=== PATIENT | female | born 1990 | race Caucasian/White ===

== ENCOUNTER 2017-07-26 20:31 | Emergency (ER) | payer BC, SELFPAY ==
[2017-07-26 20:58] VITALS: BP 124/78; PULSE 93; RESP 16; TEMP 37.2; O2SAT 99
[2017-07-26 21:48] LABS: Add Manual Diff / Slide Review NO; Basophils Percent Auto 0.8 % (0-2); Eosinophils Percent Auto 0.3 % (2-4); Hematocrit 41.5 % (36-46); Hemoglobin 14.8 g/dL (12.0-16.0); Lymphocytes Percent Auto 24.9 % (25-40); Mean Corpuscular HGB Conc 35.7 % (30-36); Mean Corpuscular Hemoglobin 30.7 PG (26-34); Mean Corpuscular Volume 86.1 fL (80-100); Monocytes Percent Auto 5.4 % (3-14); Neutrophils Absolute Auto 5100 /uL (3000-5900); Neutrophils Percent Auto 68.6 % (50-75); Platelet Count 312 X10^3/uL (150-400); Red Blood Cell Count 4.83 X10^6/uL (4.0-5.2); Red Cell Distribution Width 12.6 % (11.6-14.8); White Blood Cell Count 7.4 X10^3/uL (4.5-11.0)
[2017-07-26 21:52] LABS: INR 1.1 (0.9-1.3); Prothrombin Time 12.4 SECONDS (10.1-12.7)
[2017-07-26 21:55] LABS: PTT Partial Thromboplastin Tim 33 SECONDS (26.4-36.2)
[2017-07-26 21:56] LABS: Alanine Aminotransferase 16 IU/L (9-52); Albumin 4.9 g/dL (3.5-5.0); Albumin Globulin Ratio 1.5 (1.0-2.8); Alkaline Phosphatase 49 U/L (38-126); Aspartate Aminotransferase 21 IU/L (14-36); BUN Creatinine Ratio 11.4 (6-22); Calcium 9.6 mg/dL (8.4-10.2); Estimated Glomerular Filt Rate > 60.0 mL/min (>60); Globulin 3.2 g/dL (1.7-4.1); Glucose 91 mg/dL (70-100); HEMOLYSIS < 15 (0-50); Lipase 58 U/L (23-300); Potassium 3.7 mmol/L (3.4-5.1); Sodium 140 mmol/L (137-145); Total Protein 8.1 g/dL (6.3-8.2)
--- NOTE | 2017-07-27 00:04 | ED_ITS ---
HPI - GI Bleed General Chief complaint: GI Bleed Stated complaint: SEVERE STOMACH PAIN, BLOOD IN STOOL X 3 DAYS Time Seen by Provider: 07/26/17 23:46 Source: patient and RN notes reviewed Mode of arrival: ambulatory History of Present Illness HPI Narrative: Patient is a 27-year-old female who presents with 2 episodes of black tarry stool today. She is having some epigastric pain. She denies taking any Pepto-Bismol or NSAIDs. She is having some abdominal cramping no dizziness lightheadedness or shortness of breath. MD complaint: other (black stool x2) Onset (ago): day(s) (1) Pain Consistency: now resolved Severity: mild Relieving factors: none Exacerbating factors: none Associated symptoms: abdominal pain Treatments Prior to Arrival: none Related Data Home Medications Medication Instructions Recorded Confirmed [SUPPLEMENTS] #0 03/11/16 Previous Rx's Medication Instructions Recorded doxycycline hyclate 100 mg PO Q12H #20 cap 03/11/16 hydrocodone-acetaminophen 0 tab PO Q6HP PRN #15 tab 03/11/16 metronidazole [Flagyl] 500 mg PO Q6H 10 Days #0 tab 03/11/16 ondansetron [Zofran ODT] 4 mg SUBLINGUAL Q6HP PRN #20 odt 03/11/16 pantoprazole [Protonix] 20 mg PO BID #14 tab 07/27/17 Allergies Allergy/AdvReac Type Severity Reaction Status Date / Time No Known Drug Allergies Allergy Verified 07/26/17 21:01 Review of Systems Review of Systems All systems reviewed & are unremarkable except as noted in HPI and below Constitutional Denies chills, Denies fever(s), Denies headache(s), Denies lethargy and Denies weakness ENT Ears, Nose, Mouth, and Throat: Denies headache(s) Cardiovascular Denies chest pain, Denies irregular heart rhythm, Denies lightheadedness, Denies palpitations, Denies dyspnea, Denies dyspnea on exertion and Denies orthopnea Respiratory Denies cough, Denies dyspnea, Denies dyspnea on exertion and Denies wheezing Gastrointestinal Gastrointestinal: Reports as per HPI Genitourinary Denies hematuria, Denies flank pain, Denies urinary incontinence and Denies urinary urgency Neurologic Denies headache(s), Denies lack of coordination and Denies weakness Endocrine Denies palpitations Allergic/Immunologic Denies wheezing [facility] Social History Smoking Status: Never smoker Exam Const General: cooperative and well developed Nutritional Appearance: well nourished Orientation: alert, awake, oriented x3 and not confused Other: Patient sleeping easily awoke Eyes General: appearance normal, both eyes and all related structures Pupils: PERRL EOM: EOM intact bilaterally Neck Neck: normal visual inspection and No lymphadenopathy Resp Effort & Inspection: normal respiratory effort, able to speak in complete sentences, no respiratory distress and no use of accessory muscles Auscultation: clear to auscultation bilaterally, no rales, no rhonchi and no wheezes Cardio Rate: regular rate Rhythm: regular rhythm Heart Sounds: no click, no gallops, no murmurs and no rubs Pulses: normal peripheral pulses GI Inspection: non-distended Palpation: soft, no hepatosplenomegaly, No guarding, No pulsatile mass and No tender Auscultation: normal bowel sounds Rectal Exam: visual inspection normal, normal sphincter tone and No hemorrhoids Other: No gross blood no stool Skin General: no rashes or lesions noted, No jaundice and No petechiae Neuro General: alert, oriented x3, gait normal and no focal motor deficits Cranial Nerves: CN's II-XI intact bilaterally Speech: speech normal Motor: strength 5/5 throughout Sensory Exam: no sensory deficits noted MDM - GI Bleed MDM Narrative Medical decision making narrative: The patient is hemodynamically stable she had 2 dark bowel movements are. Probable gastritis. Sleeping and feeling better now. Differential Diagnosis Likely infectious diarrhea, esophageal varices, gastritis, Upper gastrointestinal hemorrhage and Lower gastrointestinal hemorrhage Medical Records Attestation: I reviewed the patient's medical records. Lab Data Attestation: I reviewed the patient's lab results. Result diagrams: 07/26/17 21:30 07/26/17 21:30 Lab Results 07/26/17 07/26/17 07/26/17 Range/Units 21:30 21:30 21:30 WBC 7.4 (4.5-11.0) X10^3/uL RBC 4.83 (4.0-5.2) X10^6/uL Hgb 14.8 (12.0-16.0) g/dL Hct 41.5 (36-46) % MCV 86.1 (80-100) fL MCH 30.7 (26-34) PG MCHC 35.7 (30-36) % RDW 12.6 (11.6-14.8) % Plt Count 312 (150-400) X10^3/uL Neut % (Auto) 68.6 (50-75) % Lymph % (Auto) 24.9 L (25-40) % [place] % (Auto) 5.4 (3-14) % Eos % (Auto) 0.3 L (2-4) % Baso % (Auto) 0.8 (0-2) % Neut # (Auto) 5100 (5722-1259) /uL PT 12.4 (10.1-12.7) SECONDS INR 1.1 (0.9-1.3) APTT 33 (26.4-36.2) SECONDS Sodium 140 (137-145) mmol/L Potassium 3.7 (3.4-5.1) mmol/L Chloride 101.0 (98-107) mmol/L Carbon Dioxide 25.0 (22-32) mmol/L BUN 8.0 (7-17) mg/dL Creatinine 0.70 (0.52-1.04) mg/dL Estimated GFR > 60.0 (>60) mL/min BUN/Creatinine Ratio 11.4 (6-22) Glucose 91 (70-100) mg/dL Calcium 9.6 (8.4-10.2) mg/dL Total Bilirubin 1.0 (0.2-1.3) mg/dL AST 21 (14-36) IU/L ALT 16 (9-52) IU/L Alkaline Phosphatase 49 (38-126) U/L Total Protein 8.1 (6.3-8.2) g/dL Albumin 4.9 (3.5-5.0) g/dL Globulin 3.2 (1.7-4.1) g/dL Albumin/Globulin Ratio 1.5 (1.0-2.8) Lipase 58 (23-300) U/L Discharge Plan Departure Patient Disposition: Home, Self-Care Clinical Impression: Gastritis Discharge Date/Time: 07/27/17 00:30 Interventions: ED Discharge Assessment Last Done: 07/27/17 00:30 Instructions: DI for Gastritis Activity Restrictions/Additional Instructions: *You have been diagnosed with gastritis, *What to do: Avoid all NSAIDs including Motrin, ibuprofen, Aleve, naproxen, Advil *Take medications as directed -omeprazole twice a day 30 min before meals for 2 weeks *Follow up with your primary care provider in 2-3 days *Return to ER if you should have increasing abdominal pain, increased frequency of black stool or bloody stool, dizziness, lightheaded any new, worsening or concerning symptoms Prescriptions: New pantoprazole [Protonix] 20 mg tablet,delayed release (DR/EC) 20 mg PO BID Qty: 14 RF: 0 No Action [SUPPLEMENTS] Qty: 0 RF: 0 doxycycline hyclate 100 MG capsule 100 mg PO Q12H Qty: 20 RF: 0 metronidazole [Flagyl] 500 MG tablet 500 mg PO Q6H 10 Days Qty: 0 RF: 0 ondansetron [Zofran ODT] 4 MG tablet,disintegrating 4 mg Sublingual Q6HP PRNQty: 20 RF: 0 hydrocodone-acetaminophen 5 MG/325 MG tablet PO Q6HP PRNQty: 15 RF: 0 Referrals: Heather Arciniega ARNP [Primary Care Provider] - Stand Alone Forms: Work/School Restrictions
[2017-07-27] MEDS: PANTOPRAZOLE 40 MG VIAL IV (00:10)
[2017-07-27 00:30] VITALS: BP 110/75; PULSE 85; RESP 15; TEMP 36.4; O2SAT 100
== END 2017-07-27 00:30 | disposition home or self-care (01) ==
PROVIDERS: Emergency Provider Emergency Medicine; PCP Nurse Practitioner Family
DX: K29.70 Gastritis, unspecified, without bleeding (principal)
CPT/HCPCS: 36591; 80053; 83690; 85025; 85610; 85730; 96374; 99282; 99284; C9113